=== PATIENT | male | born 2000 | race Caucasian/White ===

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

== ENCOUNTER → 2019-02-13 14:24 | Outpatient (CLI) | payer BC, SELFPAY ==
--- NOTE | 2019-02-13 14:29 | MR_ITS ---
PROCEDURE: MR ANKLE RT WO CON CLINICAL INDICATION: ACUTE RIGHT ANKLE PAIN Medial side right ankle pain and bruising with swelling with pain with flexion and extension COMPARISON: FTR3 FOOT-RT-3 VIEWS from 09/29/2008 TECHNIQUE: Routine multiplanar multi echo sequences are performed without gadolinium enhancement. FINDINGS: There is some bone marrow edema involving the neck of the talus medially as well as the 1st and 2nd cuneiform consistent with bone bruises. There is a well-circumscribed transverse defect in the navicular medially consistent with a type 2 os navicularis. Prominent soft tissue swelling is present along the anterior aspect of the ankle as well as medial and lateral aspect of the ankle. The tibiofibular ligaments appear intact. The anterior talofibular ligament is not identified consistent with complete tear of the ATFL. Posterior talofibular ligament appears intact. The normal striations of the deltoid ligament are not identified consistent with tear of the deltoid ligament. There is a small amount ankle joint effusion with fluid both anterior and posterior at the ankle joint. The peroneal tendons, posterior tibialis tendon, flexor hallucis longus and flexor digitorum longus tendon as well as the Achilles tendon and the anterior extensor tendons appear intact. Small amount fluid is present along the medial aspect of the tibialis posterior and flexor digitorum longus consistent with tenosynovitis. IMPRESSION: 1. Nonvisualization of the anterior talofibular ligament consistent with complete tear. 2. Tear of the deltoid ligament. 3. Bone bruise of the talus and 1st and 2nd cuneiforms. Suggest radiograph of the foot and ankle if not already performed to assure there are no MRI occult fractures in this region. 4. Moderate amount soft tissue swelling about the medial and lateral aspect of the ankle. Dictated by: Barry Leos MD 02/13/2019 15:35 Electronically signed by Barry Leos MD in [place] 02/13/2019 15:35
== END ==
PROVIDERS: PCP Family Medicine; Visit Provider Emergency Medicine
DX: M25.571 Pain in right ankle and joints of right foot (principal)
CPT/HCPCS: 73721

== ENCOUNTER 2019-08-27 13:26 | Emergency (ER) | payer BC, SELFPAY ==
[2019-08-27 13:31] VITALS: BP 98/55; PULSE 78; RESP 16; TEMP 36.4; O2SAT 97; BMI 24.2
[2019-08-27 13:36] VITALS: BP 98/55; PULSE 78; RESP 16; TEMP 36.4; O2SAT 97; BMI 24.7
--- NOTE | 2019-08-27 13:42 | HMH.EDUTC ---
[facility] [place] Disposition Clinical Impression: Ingrown toenail of right foot with infection Disposition: Home, Self-Care Condition on Discharge: Good Instructions: Trimethoprim/Sulfamethoxazole (Alternative Therapy), DI for Ingrown Toenail, DI for Infected Ingrown Toenail Additional Instructions: Soak your toe in a warm foot bath with unscented Epsom salt. Mix 1-2 tablespoons of unscented Epsom salts into one quart of warm water and soak your foot for 15 minutes at a time. Do this several times a day for the first few days. Always dry your foot completely after soaking. Soaking your ingrown or infected toe will help relieve the pain and pressure of an infection. It can also help to draw out pus from your toe. Keep your feet dry, unless you?re soaking them for treatment. Wear comfortable shoes. Keep antibiotic ointment on your ingrown toenail to reduce infection. Relieve pain with johk-gir-dsjvptc pain medications. Acetaminophen or ibuprofen can both help relieve the pain that comes from an infected toe. Take medication as prescribed Follow up with Dr Harrison in the Podiatry Clinic, call tomorrow for appointment, let them know you was seen in [facility] and started on antibiotics and recommended follow up in clinic Return if needed Straight to ER if any life threatening symptoms FOllow up with family doctor if needed Prescriptions: Bacitracin 1 applicatio TOPICAL TID #1 tube Transmission Status: Pending to [facility] Sulfamethoxazole/Trimethoprim [Bactrim DS tablet] 1 each PO BID 10 Days #20 tab Transmission Status: Pending to [facility] Referrals: Chandler Dodson MD [Primary Care Provider] - As needed Haylee Harrison DPM [Staff Physician] - As needed (Call office tomorrow morning for appointment) Forms: Work/School Release Time of Disposition: 14:02 Medical Decision Making - Jagjit Inquiry Pt receiving controlled substance: No Jagjit was queried for this patient: No Vital Signs: 08/27/19 13:31 08/27/19 13:36 Temperature 97.6 F 97.6 F Temperature Source Oral Oral Pulse Rate [Left Radial] 78 78 Respiratory Rate 16 16 Blood Pressure [Left Arm] 98/55 L 98/55 L Blood Pressure Mean [Left Arm] 69 69 Blood Pressure Source [Left Arm] Automatic Cuff Automatic Cuff Blood Pressure Position [Left Arm] Sitting Sitting 02 Sat by Pulse Oximetry 97 97 Oxygen Delivery Method Room Air Room Air Orders (Tests/Meds): ORDERS Category Date Time Status Wound Culture and Gram Stain Stat Micro 08/27/19 13:47 Received [facility] [place] HPI - General Stated complaint: ingrown toe nail pain Time Seen by Provider: 08/27/19 13:42 Mode of Arrival: Ambulatory Source of Information: Patient Limitations: No Limitations Description of Symptoms (Recalled from Triage Doc. by RN): Pt c/o infected ingrown toenail. Denies any fever or other symptoms at this time. HEENT Symptoms (Recalled from RN notes): No Resp Symptoms (Recalled from RN notes): No Skin Symptoms (Recalled from RN notes): No MS Symptoms (Recalled from RN notes): No Functional Status (Recalled from RN notes): Na - History of Present Illness Provider Complaint: Patient states that he has been having problems with ingrown toenail in his right great toe for about 7 weeks but he has been gone on active duty States that today it was looking red and had some drainage from it so he knew it was infected so he came in to get it checked - Related Data Previous Rx's Medication Instructions Recorded Bacitracin 1 applicatio TOPICAL TID #1 tube 08/27/19 Sulfamethoxazole/Trimethoprim 1 each PO BID 10 Days #20 tab 08/27/19 [Bactrim DS tablet] Allergies Allergy/AdvReac Type Severity Reaction Status Date / Time No Known Allergies Allergy Verified 08/27/19 14:00 - Worker's Comp Is this a Worker's Comp case?: No [facility] History - Hepatitis A Screen Drug use history?: No High risk sexual behaviors?: No History of sexually transmitted infection?: No Currently employed?: No
[2019-08-27 14:03] VITALS: BP 98/55; PULSE 78; RESP 16; TEMP 36.4; O2SAT 97
== END 2019-08-27 14:04 | disposition home or self-care (01) ==
LOC: ER 13:31 → UTC 13:34
PROVIDERS: Emergency Provider Nurse Practitioner; PCP Family Medicine
DX: L60.0 Ingrowing nail (principal)
CPT/HCPCS: 87070; 87077; 87186; 87205; 99201

== ENCOUNTER 2019-09-06 19:33 | Emergency (ER) | payer BC, SELFPAY ==
[2019-09-06 19:34] VITALS: BP 147/77; PULSE 114; RESP 16; TEMP 38; O2SAT 100; BMI 25.0
--- NOTE | 2019-09-06 20:05 | HMH.EDUTC ---
[facility] [place] Clinical Impression: Medication reaction Qualifiers: Encounter type: initial encounter Qualified Code(s): T50.905A - Adverse effect of unspecified drugs, medicaments and biological substances, initial encounter URI (upper respiratory infection) Qualifiers: URI type: unspecified URI Qualified Code(s): J06.9 - Acute upper respiratory infection, unspecified Disposition: Home, Self-Care Condition on Discharge: Good Instructions: Sore Throat, DI for General Allergic Reactions, Azithromycin, Prednisone Additional Instructions: Stop taking Bactrim DS *Monitor Temp, Over the counter Motrin or Tylenol as directed/as needed Tylenol every 4 hours and Motrin every 6 hours (as long as your family doctor has told you that you can take it) for fever or pain. and straight to ER if unable to lower temp less than 101.0 after medication given *Warm salt water gargles may help to soothe the throat *Throat Lozenges *Warm fluids like tea with honey may help to soothe the throat *Sleep elevated *Humidifier/Vaporizer *Start steroids tomorrow Follow up with family doctor immediately if no improvement Your throat swab was sent for culture. Those results are typically sent to your primary care. Be sure to follow up in 2-3 days with your family doctor/primary care physician if no improvement so they can review those result and treat if necessary. If you don?t have a primary care doctor, I recommend you get one but in the mean time, you will have to return to a walk in clinic Follow up IMMEDIATELY for new or worsening symptoms or no Noticeable improvement over the next 48-72 hours. 911 for difficulty breathing or swallowing Prescriptions: predniSONE [Prednisone 5mg Tab Dose-Pack] 5 mg PO UD DOSE PK 6 Days #21 pack Transmission Status: Pending to [facility] Azithromycin [Z-Gregg 250mg Tab] 250 mg PO DIRECTED #6 tab Transmission Status: Pending to [facility] Referrals: Chandler Dodson MD [Primary Care Provider] - As needed Time of Disposition: 20:55 Medical Decision Making - Jagjit Inquiry Pt receiving controlled substance: No Jagjit was queried for this patient: No Vital Signs: 09/06/19 19:34 Temperature 100.4 F H Temperature Source Oral Pulse Rate [Right] 114 H Respiratory Rate 16 Blood Pressure [Right Arm] 147/77 H Blood Pressure Mean [Right Arm] 100 02 Sat by Pulse Oximetry 100 - Lab Data Lab Results 09/06/19 19:45: Influenza Type A Ag Negative, Influenza Type B Ag Negative 09/06/19 19:45: Strep Scn Rapid Clinic Negative 09/06/19 20:14: Monoscreen Negative Orders (Tests/Meds): ED MEDICATIONS Discontinued Medications Generic Name Dose Route Start Last Admin Trade Name Dillan PRN Reason Stop Dose Admin Acetaminophen 650 mg 09/06/19 20:21 09/06/19 20:23 Acetaminophen 325mg Tab PO 09/06/19 20:22 650 mg ONCE ONE Administration Methylprednisolone Sodium Succinate 125 mg 09/06/19 20:05 09/06/19 20:21 Solu-Medrol 125mg/2ml Vial IM 09/06/19 20:06 125 mg ONCE ONE Administration ORDERS Category Date Time Status Strep Screen Confirmation Stat Micro 09/06/19 19:45 Received [facility] [place]PI - General Stated complaint: fever&rash Time Seen by Provider: 09/06/19 20:05 Mode of Arrival: Ambulatory Limitations: No Limitations Description of Symptoms (Recalled from Triage Doc. by RN): C/P fever, rash, body aches and chills that began yesterday. HEENT Symptoms (Recalled from RN notes): Yes Resp Symptoms (Recalled from RN notes): No Skin Symptoms (Recalled from RN notes): Yes MS Symptoms (Recalled from RN notes): No Functional Status (Recalled from RN notes): na - History of Present Illness Provider Complaint: Patient states that he has been on antibiotics for infected toe State that yesterday he started having chills and noticed he was breaking out in a rash all over his body States that today still having fever, chills, body aches, and rash all over his b
[2019-09-06 20:38] LABS: UTC Influenza A Antigen Negative (Negative); UTC Strep Screen (Rapid) Negative (Negative)
[2019-09-06 20:39] LABS: UTC Influenza B Antigen Negative (Negative)
[2019-09-06 20:39] LABS: Monoscreen (Rapid) Negative (Negative)
[2019-09-06 20:57] VITALS: BP 114/87; PULSE 100; RESP 16; TEMP 37.2; O2SAT 98
== END 2019-09-06 21:03 | disposition home or self-care (01) ==
PROVIDERS: Emergency Provider Nurse Practitioner; PCP Family Medicine
DX: L27.1 Localized skin eruption due to drugs and medicaments taken internally (principal); T36.8X5A Adverse effect of other systemic antibiotics, initial encounter; J06.9 Acute upper respiratory infection, unspecified
CPT/HCPCS: 86318; 87804; 87880; 96372; 99203

== ENCOUNTER 2019-11-06 19:02 | Emergency (ER) | payer BC, SELFPAY ==
[2019-11-06 19:19] VITALS: BP 114/69; PULSE 65; RESP 14; TEMP 36.8; O2SAT 98; BMI 25.0
--- NOTE | 2019-11-06 19:34 | HMH.EDUTC ---
[facility] [place] Clinical Impression: Ingrown toenail of right foot with infection Disposition: Home, Self-Care Condition on Discharge: Good Instructions: Ingrown Toenail, Neomycin, Polymyxin, and Bacitracin Topical, Cephalexin Additional Instructions: Take medication as prescribed Soak foot in warm water and epson salt and apply bacitracin around the toenail area Call Dr Owens office and make appointment Return if needed Straight to ER if any life threatening symptoms Follow up with Family doctor if no improvement or any worsening of symptoms Prescriptions: Bacitracin [Bacitracin Oint 0.9GM UDP] 1 each TP TID 10 Days #30 packet Transmission Status: P[facility] to [email or web address] cephALEXin [Keflex 500mg Cap] 500 mg PO Q6H 10 Days #40 cap Transmission Status: Pending to [facility] Referrals: Chandler Dodson MD [Primary Care Provider] - As needed Haylee Harrison DPM [Staff Physician] - As needed (Call office for appointment) Time of Disposition: 19:43 Medical Decision Making - Jagjit Inquiry Pt receiving controlled substance: No Jagjit was queried for this patient: No Vital Signs: 11/06/19 19:19 Temperature 98.2 F Temperature Source Oral Pulse Rate [Right Brachial] 65 Respiratory Rate 14 Blood Pressure [Right Arm] 114/69 Blood Pressure Mean [Right Arm] 84 Blood Pressure Source [Right Arm] Automatic Cuff Blood Pressure Position [Right Arm] Sitting 02 Sat by Pulse Oximetry 98 Oxygen Delivery Method Room Air [facility] [place] HPI - General Stated complaint: possible allergic reaction to med Time Seen by Provider: 11/06/19 19:34 Mode of Arrival: Ambulatory Source of Information: Patient Limitations: No Limitations Description of Symptoms (Recalled from Triage Doc. by RN): PATIENT C/O INFECTION TO BIG TOE. STATES HE WAS RECENTLY ON AN ANITIBIOTIC BUT HAD A REACTION TO IT AND IS NO LONGER TAKING IT HEENT Symptoms (Recalled from RN notes): No Resp Symptoms (Recalled from RN notes): No Skin Symptoms (Recalled from RN notes): No MS Symptoms (Recalled from RN notes): Yes Functional Status (Recalled from RN notes): WNL - History of Present Illness Provider Complaint: Patient states that he has been recently treated for infected right ingrown toenail States that he was started on antibiotics by Dr Harrison and he had a reaction to them States that he never came back to get more antibiotic to clear up infection so he can get the toe nail removed - Related Data Previous Rx's Medication Instructions Recorded Bacitracin 1 applicatio TOPICAL TID #1 tube 08/27/19 Sulfamethoxazole/Trimethoprim 1 each PO BID 10 Days #20 tab 08/27/19 [Bactrim DS tablet] Azithromycin [Z-Gregg 250mg Tab] 250 mg PO DIRECTED #6 tab 09/06/19 predniSONE [Prednisone 5mg Tab 5 mg PO UD DOSE PK 6 Days #21 pack 09/06/19 Dose-Pack] Bacitracin [Bacitracin Oint 0.9GM 1 each TP TID 10 Days #30 packet 11/06/19 UDP] cephALEXin [Keflex 500mg Cap] 500 mg PO Q6H 10 Days #40 cap 11/06/19 Allergies Allergy/AdvReac Type Severity Reaction Status Date / Time Sulfa (Sulfonamide Allergy Verified 11/06/19 19:32 Antibiotics) - Worker's Comp Is this a Worker's Comp case?: No [facility] History - Hepatitis A Screen Drug use history?: No High risk sexual behaviors?: No History of sexually transmitted infection?: No Currently employed?: No Childcare worker?: No Do you have indoor plumbing?: Yes Do you have electricity?: Yes Attestation statement:: This patient has been screened for Hepatitis A risk factors. I have reviewed the patient's past medical history: Yes - Social History Alcohol Intake: never Occupational Status: other ROS Obtained: Yes All systems reviewed & no additional complaints, Yes Systems reviewed as appropriate & no additional complaints - Constitutional Constitutional: Reports system reviewed and no additional complaints, except as docu - Eyes Eyes: Reports system reviewed and no additional compl
[2019-11-06 19:45] VITALS: BP 114/69; PULSE 65; RESP 14; TEMP 36.8; O2SAT 98
== END 2019-11-06 19:48 | disposition home or self-care (01) ==
PROVIDERS: Emergency Provider Nurse Practitioner; PCP Family Medicine
DX: L60.0 Ingrowing nail (principal); Z88.2 Allergy status to sulfonamides
CPT/HCPCS: 99201

== ENCOUNTER 2020-03-11 16:43 | Emergency (ER) | payer BC, SELFPAY ==
[2020-03-11 17:20] VITALS: BP 138/69; PULSE 87; RESP 19; TEMP 36.8; O2SAT 99; BMI 25.3
--- NOTE | 2020-03-11 18:04 | HMH.EDUTC ---
[facility] [place] Clinical Impression: Ingrown right big toenail Disposition: Home, Self-Care Condition on Discharge: Good Instructions: Ingrown Toenail, DI for Ingrown Toenail, Clindamycin, Bacitracin Topical Additional Instructions: Soak foot in warm water and epson salt multiple times daily and appy Bacitracin around the toe nail area Take oral antibiotics as prescribed FOllow up with your Family Doctor if needed FOllow up with Podiatry for further treatment and evaluation Return if needed Straight to ER if any life threatening symptoms Prescriptions: Bacitracin 1 each TP TID 10 Days #30 packet Transmission Status: Pending to [facility] clindamycin HCL [Cleocin HCl] 300 mg PO TID 10 Days #30 cap Transmission Status: Pending to [facility] Referrals: Chandler Dodson MD [Primary Care Provider] - As needed Haylee Harrison DPM [Staff Physician] - Jennie Nagel APRN [Nurse Practitioner] - Time of Disposition: 18:13 Medical Decision Making - Jagjit Inquiry Pt receiving controlled substance: No Jagjit was queried for this patient: No Vital Signs: 03/11/20 17:20 Temperature 98.3 F Temperature Source Oral Pulse Rate [Right Brachial] 87 Respiratory Rate 19 Blood Pressure [Right Arm] 138/69 Blood Pressure Mean [Right Arm] 92 Blood Pressure Source [Right Arm] Automatic Cuff Blood Pressure Position [Right Arm] Sitting 02 Sat by Pulse Oximetry 99 Oxygen Delivery Method Room Air [facility] [place]PI - General Stated complaint: ingrown toenail Time Seen by Provider: 03/11/20 18:04 Mode of Arrival: Ambulatory Source of Information: Patient Limitations: No Limitations Description of Symptoms (Recalled from Triage Doc. by RN): PATIENT C/O INGROWN TOENAIL TO RIGHT GREAT TOE X 3 MONTHS HEENT Symptoms (Recalled from RN notes): No Resp Symptoms (Recalled from RN notes): No Skin Symptoms (Recalled from RN notes): No MS Symptoms (Recalled from RN notes): No Functional Status (Recalled from RN notes): WNL - History of Present Illness Provider Complaint: Patient states that he has been having problems with ingrown toenail on right great toe for about 3mth States that over the last couple of weeks States that he has noticed it is red and starting to drain States that last time this happened he had to come in and get on antibiotics before they could take it out so he came in - Related Data Previous Rx's Medication Instructions Recorded Bacitracin 1 each TP TID 10 Days #30 packet 03/11/20 clindamycin HCL [Cleocin HCl] 300 mg PO TID 10 Days #30 cap 03/11/20 Allergies Allergy/AdvReac Type Severity Reaction Status Date / Time Sulfa (Sulfonamide Allergy Verified 11/06/19 19:32 Antibiotics) - Worker's Comp Is this a Worker's Comp case?: No [facility] History - Hepatitis A Screen Drug use history?: No High risk sexual behaviors?: No History of sexually transmitted infection?: No Currently employed?: No Childcare worker?: No Do you have indoor plumbing?: Yes Do you have electricity?: Yes Attestation statement:: This patient has been screened for Hepatitis A risk factors. I have reviewed the patient's past medical history: Yes - Social History Alcohol Intake: never Occupational Status: other ROS Obtained: Yes All systems reviewed & no additional complaints, Yes Systems reviewed as appropriate & no additional complaints Physical Exam - General General appearance: alert, in no apparent distress - Respiratory Respiratory exam: Present: normal lung sounds bilaterally. Absent: respiratory distress - Cardiovascular Cardiovascular exam: Present: regular rate, normal rhythm. Absent: JVD - Expanded Lower Extremity Exam Right Foot/toe exam: Present: other (swelling and redness around toenail on right great toe on and off for 3mths) Neurovascular/Tendon exam: Present: normal capillary refill. Absent: pulse deficit, motor deficit, sensory deficit Gait: observed and normal - Neur
[2020-03-11 18:16] VITALS: BP 138/69; PULSE 87; RESP 19; TEMP 36.8; O2SAT 99
== END 2020-03-11 18:18 | disposition home or self-care (01) ==
PROVIDERS: Emergency Provider Nurse Practitioner; PCP Family Medicine
DX: L60.0 Ingrowing nail (principal)
CPT/HCPCS: 99201

== ENCOUNTER 2022-04-09 15:50 | Emergency (ER) | payer BC, SELFPAY ==
[2022-04-09 17:00] VITALS: BP 166/88; RESP 20; TEMP 36.8; O2SAT 98; BMI 25.8
--- NOTE | 2022-04-09 17:02 | EXP.UTC ---
Discharge Plan Disposition Patient Disposition: Home, Self-Care Condition: Good Prescriptions Prescriptions: New ibuprofen [ibuprofen] 600 mg tablet 600 mg PO Q6HP PRN (Reason: Mild Pain) Qty: 30 0RF hmnxwqzcvsyhecf-tfqarqhzc-GK [Bromfed DM] 2-30-10 mg/5 mL Syrup 5 ml PO Q6H PRN (Reason: Cough) Qty: 240 0RF ondansetron 4 mg Tablet,Disintegrating 4 mg PO Q8H PRN (Reason: Nausea) Qty: 20 0RF Referrals Follow up/Referrals: Chandler Dodson MD [Primary Care Provider] - See instructions Activity Restrictions/Add. Instructions Additional Instructions/Restrictions: Drink plenty of fluids. Take tylenol or ibuprofen for pain or fever. Take the medications as directed. Follow up with your regular doctor. GO TO THE ER FOR ANY WORSENING SYMPTOMS Quarantine until you know the results of your covid-19 test. Notify your school or workplace of your results and follow their instructions regarding return to work/school. Clinical Impressions Clinical Impression: Acute viral syndrome, Exposure to 2019 novel coronavirus Stand Alone Forms Stand Alone Forms: Work/School Release Instructions Patient Instructions: Coronavirus Disease 2019, Preventing the Spread of Coronavirus Discharge Instructions Discharge ED Provider: Lefty Tariq [facility] General Stated complaint: EXPOSED BODY ACHES cOVID TEST Time Seen by Provider: 04/09/22 17:02 History of Present Illness Provider Complaint: He states that he started having body aches, low grade fever and malaise yesterday. His girlfriend tested positive for covid-19 today. He is here to be checked. Related Data Previous Rx's Medication Instructions Recorded kquoajfjdxinkrm-xjezqepnafqamlj-NS 5 ml PO Q6H PRN Cough #240 mL 04/09/22 2 mg-30 mg-10 mg/5 mL oral syrup (Bromfed DM) ibuprofen 600 mg tablet 600 mg PO Q6HP PRN Mild Pain #30 04/09/22 tabs ondansetron 4 mg disintegrating 4 mg PO Q8H PRN Nausea #20 tabs 04/09/22 tablet Allergies Allergy/AdvReac Type Severity Reaction Status Date / Time Sulfa (Sulfonamide Allergy Verified 04/09/22 17:14 Antibiotics) [facility] Disclaimer: The information contained in this section may have been updated after the patient was seen, as this information can be updated by other users. Social History Smoking Status: Never smoker alcohol intake: never current occupational status: other Travel in the last 8 weeks: None ROS Obtained: Yes All systems reviewed & no additional complaints except as documented Constitutional Constitutional: Reports chills and Reports fever(s) Eyes Eyes: Denies eye discharge ENT Ears, Nose, Mouth, and Throat: Reports as per HPI Cardiovascular Cardiovascular: Denies chest pain Respiratory Respiratory: Denies chest congestion and Reports cough Gastrointestinal Gastrointestingal: Reports nausea; Denies abdominal pain, constipation, cramping, diarrhea or vomiting Musculoskeletal Musculoskeletal: Denies arthralgias Integumentary/Breasts Skin/Breast: Denies rash Neurologic Neurologic: Denies paresthesias Physical Exam General General appearance: alert and in no apparent distress Head Head exam: atraumatic, normocephalic and normal inspection Eye Eye exam: Present normal appearance, PERRL and EOMI ENT ENT exam: Present normal exam, normal oropharynx, mucous membranes moist, TM's normal bilaterally and normal external ear exam Neck Neck exam: Present normal inspection, full ROM and trachea midline; Absent meningismus or lymphadenopathy Chest Chest inspection: Present normal inspection and symmetric chest wall rise; Absent tenderness Respiratory Respiratory exam: Present normal lung sounds bilaterally; Absent respiratory distress Cardiovascular Cardiovascular exam: Present regular rate and normal rhythm; Absent JVD Abdominal Exam Abdominal exam: Present soft and normal bowel sounds; Absent distention, te
[2022-04-09 17:41] VITALS: BP 166/88; PULSE 90; RESP 20; TEMP 36.6; O2SAT 98
== END 2022-04-09 17:41 | disposition home or self-care (01) ==
PROVIDERS: Emergency Provider Nurse Practitioner Family; PCP Family Medicine
DX: U07.1 COVID-19 (principal); R52 Pain, unspecified
CPT/HCPCS: 99212; 99213; C9803; G0463; U0003; U0005